=== PATIENT | female | born 1975 | race Caucasian/White ===

== ENCOUNTER 2016-09-11 06:53 | Day surgery (SDC) | payer OTHER ==
[~2016-09-11] VITALS: Ht 165.1 cm; Wt 116.5 kg
[2016-09-11] VITALS (8 sets, daily range): BP systolic 117–134; BP diastolic 64–79; PULSE 54–73; RESP 11–18; O2SAT 94–98
[~2016-09-11 06:53] MED LIST: ALBU2.5V4 INHALATION; AZEL205. NS; BUDE0.5A2 INHALATION; DIAZ5TAB3 PO; Dexamethasone Inj 20 MG in Dextrose 5%-Pha MIX 50 ML IV ONE; FEXO-106 PO; FORM20VI2 IH; GABA-502 PO; HYDR-4003 PO; IPRA30SP8 NS; L.AC1CAP5 PO; LEVO500T79 PO; Lactated Ringer's 1,000 ML IV ONE; MOME13HF4 IH; MONT10TA20 PO; OMEP20TA86 PO; TIOT18CA3 IH; diflucan; prednisone PO
[2016-09-11] MEDS ORDERED: Dexamethasone 4 mg/mL Inj ONE (06:54)
[2016-09-11] MEDS ORDERED: Ondansetron 2 mg/mL 2 mL Inj ONE (06:54)
[2016-09-11] MEDS ORDERED: Propofol 10,000 mCg/mL 20 mL Inj ONE (06:54)
[2016-09-11] MEDS ORDERED: Ketamine 10 mg/mL 20 mL Inj ONE (06:54)
[2016-09-11] MEDS ORDERED: fentaNYL-PF 50 mCg/mL 2 mL Inj ONE (06:54)
[2016-09-11] MEDS ORDERED: Lactated Ringer's 500 ML IV PRN (07:27)
[2016-09-11] MEDS ORDERED: Lactated Ringer's 1,000 ML IV SCH (07:27)
--- NOTE | 2016-09-11 07:27 | PCM.HPANE ---
Patient Data Surgeon Admitting Provider: Attending Provider:Tera Choe MD Primary Care Physician:Kevin Hadley MD Other Provider:[employer] Mark Anesthesia Reason for Visit Chronic Sinusitis, Allergic Rhinitis Ht/WT & BMI Height (Feet): 5 Height (Inches): 5 Weight (Kilograms): 113.39 Body Mass Index 41.00 Allergies Uncoded Allergies: KIWI, CILANTRO (Allergy, Unknown, 09/06/16) SEASONAL, ENVIRONMENTAL (Allergy, Unknown, 09/06/16) Past Anesthesia History Anesthesia History: Denies:: Abnormal Airway, Anesthesia Reactions, Difficult Intubation, Fam Anesthesia Reaction Diabetes History Hx Diabetes?: No MRSA MRSA: No Medications Hypertension Medication: No Home Meds Incl Beta Julito: No Reported Medications Omeprazole 20 Mg Tablet.dr20 Mg PO DAILY 09/06/16 Diazepam 5 Mg Tablet5 Mg PO TID PRN For Anxiety Ref 0 09/06/16 Fexofenadine 180 Mg Ozwtce396 Mg PO DAILY 09/06/16 [diflucan] No Conflict CheckUnknown Dose PRN for use while taking abx 09/06/16 Gabapentin 300 Mg Tyapeei400 Mg PO TID Ref 0 09/06/16 Hydrocodone-Acetaminophen 5-325 mg 1 Each Tablet1 Tablet PO Q4H PRN For Pain Ref 0 09/06/16 Ipratropium [place] (Ipratropium [place] 0.03% Nasal)30 Ml Spray2 [place] NS TID # 1 BOTTLE Ref 0 09/06/16 L.acid/L.casei/B.bif/B.kian/Fos (Probiotic Blend Capsule)1 Each Capsule1 Each PO DAILY 09/06/16 Montelukast (Singulair)10 Mg Ywwtii08 Mg PO HS Ref 0 09/06/16 Albuterol Neb Soln 2.5 Mg/3 Ml Vial.neb2.5 Mg INHALATION Q4H PRN For Shortness of Breath Ref 0 09/06/16 Formoterol Fumarate (Perforomist)20 Mcg/2 Ml Vial.neb20 Mcg IH BID PRN UNKNOWN 09/06/16 Budesonide Neb Soln 0.5 Mg/2 Ml Neb0.5 Mg INHALATION BID Ref 0 09/06/16 Tiotropium [place] (Spiriva)18 Mcg Cap.w.dev2 Sprays IH DAILY #1 PKG Ref 0 09/06/16 [prednisone] No Conflict Check40 Mg PO DAILY 09/06/16 Azelastine HCl (Astepro)205.5 Mcg/0.137 Ml [place].pump1-2 Sprays NS BID PRN nasal congestion 09/06/16 Levofloxacin 500 Mg Fhmswj587 Mg PO DAILY 09/06/16 Mometasone Furoate (Asmanex Hfa)200 Mcg/Actuation Hfa.aer.ad2 Puffs IH BID 09/06/16 History History of ENT Problems?: Yes HEENT History: Positive for:: Sinus Problem (current admission problem) TMJ (has nightguard- doesn't wear, fit not correct) Denies:: Cataracts Difficult Intubation Dysphagia Glaucoma Hearing Problem Denture Type: None Teeth Condition: Within Normal Limits Hx of Heart Problems?: No Cardiovascular History: Denies:: AICD Abdominal Aortic Aneurism Atrial Fibrillation Cardiac Surgery Chest Pain Congestive Heart Failure Coronary Artery Disease Edema Heart Murmur Hypertension Irregular Heartbeat Pacemaker Peripheral Vascular Rheumatic Fever Other Cardiac History: 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 Skin History: Positive for:: History Skin Disorders? (retained splinter left hip- red- inflammed ) Denies:: Pressure Ulcers Hx Musculoskeletal Problems?: Yes Musculoskeletal History: Positive for:: Back Injury (hx of lami L4-S1) Musculoskeletal Trauma (weakness to left hip, can "pop out" if laying on hard surface ) Denies:: Degenerative Joint Fibromyalgia Joint Replacement Myasthenia Gravis Osteoarthritis Rheumatoid Arthritis Systemic Lupus Hx of Psycho/Social Problems?: Yes Psycho Social History: Positive for:: Anxiety Hx Surgeries?: Yes (lami x 2, ) Hx Any Other Health Problems?: Yes Other History: Denies:: Cancer Thyroid Disease History Blood Transfusions: Positive for:: Accept Blood Products? Denies:: Blood Transfusions Hx Diabetes: No Hx Alcohol Use: YesAlcoholic Drinks Per Day: holidays, rarelyHx Substance Use : Yes (marijuana, topical, edible, inhale- 3-4x weekly) Smoking Status: Never Smoker Have You Smoked inLast 12 mo: No Stop/Bang P-Blood Pressure: treated: No B- Body Mass Index > 35 kg/m2: Yes A- Age over 50: No N- Neck Large Circumference: Yes G- Gender Male: Yes Risk Assessment Category Category 1A: Patient has history of documented sleep apnea, and HAS NOT received any narcotic, sedative or anesthesia administration during this stay. Category 1B: Patient has history of documented sleep apnea, and HAS received any narcotic , sedative or anesthesia administration during this stay Category 2: Patient has SUSPECTED Obstructive Sleep Apnea, and HAS received any narcotic , sedative or anesthesia administration during this stay. Category 3: Patient has SUSPECTED Obstructive Sleep Apnea and HAS NOT received narcotic, sedative or anesthesia administration during this stay. Category 4: Outpatient in Procedural Areas with known sleep apnea or who screen positive for High Risk via the STOP/BANG questionnaire. Exam Exam General Appearance: Alert, Oriented X3, Cooperative, No Acute Distress HEENT/AIRWAY: MP 2 Lungs: Clear to Auscultation, Normal Air Movement Heart: Exam Unremarkable, Regular Rate/Rhythm, No Murmurs/Rubs/Gallops Meds/Labs/Diagnostics Admission Meds Current Medications Lactated Ringer's (Lr) 1,000 ml @ 120 mls/hr Q8H20M ONCE IV Last administered on 09/11/16t 07:21; Start 09/11/16 at 05:00; Stop 09/11/16 at 13:19 Plan Impression Patient chart reviewed, patient interviewed and anesthestic plan with risks, benefits, and alternatives discussed, and informed consent obtained. Bear Hernandez MD Sep 11, 2016 07:26
[2016-09-11] MEDS ORDERED: Ondansetron 2 mg/mL 2 mL Inj IVPUSH PRN (07:30)
[2016-09-11] MEDS ORDERED: MetoCLOpramide 5 mg/mL 2 mL Inj IVPUSH PRN (07:30)
[2016-09-11] MEDS ORDERED: Dexamethasone 4 mg/mL Inj IVPUSH PRN (07:30)
[2016-09-11] MEDS ORDERED: fentaNYL-PF 50 mCg/mL 2 mL Inj IVPUSH PRN (07:30)
[2016-09-11] MEDS ORDERED: Phenylephrine 10,000 mCg/mL Inj IVPUSH PRN (07:30)
[2016-09-11] MEDS ORDERED: EPHEDrine Sulfate 50 mg/mL Inj IVPUSH PRN (07:30)
[2016-09-11] MEDS ORDERED: Lidocaine MPF 2%-Epi 1:200,000 20mL Inj INFILTRATE ONE (09:38)
[2016-09-11] MEDS ORDERED: Promethazine Inj 12.5 MG in Dextrose 5%-Pha MIX 50 ML IV ONE (10:05)
[2016-09-11] MEDS: HYDROmorphone 1 mg/mL Inj IVPUSH PRN ×2 (10:24→10:33)
[2016-09-11] MEDS ORDERED: HYDROcodone-APAP 5-325 mg Tablet PO ONE (11:24)
--- NOTE | 2016-09-11 18:58 | OP ---
[address] [address] OPERATIVE REPORT PATIENT: MIKEL DAVIS : 1975 MR#: [id number] ADMIT: 09/11/2016 JOB ID: [id number] DATE OF SURGERY: SURGEON: Tera Choe MD. PREOPERATIVE DIAGNOSIS(ES): Chronic maxillary ethmoid frontal sinusitis, obstructing dago bullosa bilaterally. POSTOPERATIVE DIAGNOSIS(ES): Chronic maxillary ethmoid frontal sinusitis, obstructing dago bullosa bilaterally. PROCEDURE: Bilateral ethmoid maxillary frontal sinusotomies and dago bullosa resection. HISTORY AND INDICATIONS: A 41-year-old, chronic and recurrent acute sinusitis, unresponsive with chronic and recurrent acute medical therapy. PROCEDURE AND FINDINGS: Patient taken to the operating room, placed in supine position on the operating table. LMA anesthesia induced. The nose was inspected with a 0-degree scope. Large dago bullosa on the right injected with 2% lidocaine. Smaller one on the left. The uncinate process and ethmoidal bulla were injected with the same. The nose was then packed with Afrin on cotton. After allowing adequate time for the local anesthetic effect, the packing was removed. Beginning on the left side with a 0-degree scope, the uncinate process was taken down with the backbiting instrument and the microdebrider exposing the maxillary outflow tract. The maxillary ostium was identified with curved suction, enlarged anteriorly and inferiorly with the microdebrider. Inspissated mucopus was obtained. The sinus mucosa was moderately diffusely inflamed. The ethmoidal bulla is taken down. The basal lamella is passed into the posterior ethmoids which are opened as well. Dissection continues into the nasofrontal recess until a curved cannula can be placed in the frontal sinus. A small dago bullosa is opened with the microdebrider. The same procedure is carried out on the right side. Difference on this side, the dago bullosa is much more extensive. No packing is required. Patient is awakened in the operating room, returned to recovery room in good condition. ESTIMATED BLOOD LOSS: Less than 50 cc. PATHOLOGIC SPECIMENS: None. COMPLICATIONS: None.
--- NOTE | 2016-09-13 08:04 | PCM.ANEP1 ---
Post Anesthesia PACU Phase 1 Assessment Anesthetic Administered: GA Level of Alertness: Awake, talking SANCHEZ's with Equal Strength: Yes Pain: No Nausea or Vomiting: No CV Function & Hydration Stable: Yes Airway Device: Oralpharangeal Airway Oxygen Delivery: Simple Mask Lungs: Clear to Auscultation Dermatome Level: Full Sensation PACU Phase 2 Assessment Complications: No Follow up Care: No Patient Instructions Provided: N/A Bear Hernandez MD Sep 13, 2016 08:04
== END 2016-09-11 23:59 | disposition home or self-care (01) ==
LOC: SAS 06:53
PROVIDERS: ATTEND Otolaryngology Facial Plastic Surgery
DX: J32.0 Chronic maxillary sinusitis (principal); J32.2 Chronic ethmoidal sinusitis; J32.1 Chronic frontal sinusitis; J34.89 Other specified disorders of nose and nasal sinuses; J45.40 Moderate persistent asthma, uncomplicated; J30.89 Other allergic rhinitis; K21.9 Gastro-esophageal reflux disease without esophagitis; F41.9 Anxiety disorder, unspecified; F12.90 Cannabis use, unspecified, uncomplicated; Z87.891 Personal history of nicotine dependence; Z79.51 Long term (current) use of inhaled steroids
CPT/HCPCS: 31240; 31255; 31256; 31276; J1100; J1170; J2405; J3010; J7120